=== PATIENT | male | born 1975 | race Asian ===

== ENCOUNTER 2024-08-05 00:44 | Emergency (ER) | payer OTHER, SELFPAY ==
[2024-08-05 00:50] VITALS: BP 127/87
[2024-08-05 01:11] LABS: % Basophils 0.8 % (0-2); % Immature Granulocytes 0.2 % (0-0.5); % Lymphocytes 25.3 % (20.5-51.1); % Monocytes 10.4 % (1.7-9.3); % Neutrophils 61.3 % (42.2-75.2); Absolute Eosinophils 0.1 10^3/uL (0-0.7); Absolute Lymphocytes 1.3 10^3/uL (1.2-3.4); Absolute Monocytes 0.5 10^3/uL (0.1-0.6); Absolute Neutrophils 3.1 10^3/uL (1.4-6.5); Hematocrit 42.3 % (39.0-52.0); Hemoglobin 13.4 g/dL (13.0-18.0); Mean Corp Hgb Conc. 31.7 g/dL (33.0-37.0); Mean Corpuscular Hgb 25.8 pg (27.0-31.0); Mean Corpuscular Volume 81.5 fL (80.0-94.0); Mean Platelet Volume 8.5 fL (7.4-10.4); Nucleated Red Blood Cells % 0 % (-); Platelet Count 416 10^3/uL (130-400); Red Blood Cell Count 5.19 10^6/uL (4.70-6.10); Red Cell Dist. Width 12.3 % (11.5-14.5)
[2024-08-05 01:26] LABS: ALT (SGPT) 23 U/L (0-50); AST (SGOT) 25 U/L (17-59); Albumin 4.9 g/dl (3.5-5.0); Alkaline Phosphatase 62 U/L (38-126); Blood Urea Nitrogen 11 mg/dl (9-20); Calcium 9.8 mg/dl (8.4-10.2); Carbon Dioxide 31 mmol/L (22-30); Chloride 100 mmol/L (98-107); Glucose 108 mg/dl (70-99); Potassium 4.5 mmol/L (3.5-5.1); Sodium 141 mmol/L (135-145); Total Bilirubin 0.8 mg/dl (0.2-1.3); Total Protein 7.4 g/dl (6.3-8.2); eGFR > 60.00
[2024-08-05 04:35] VITALS: BP 131/91
[2024-08-05] MEDS: GLYCERIN SUPPOSITORY ADULT 1 SUPP RECTAL (04:37)
--- NOTE | 2024-08-05 06:22 | ED.GENMED ---
History of Present Illness
General
Chief Complaint: Rectal Bleeding
Source: patient and family (son)
Exam Limitations: none
Time Seen by Provider: 08/05/24 06:03
Nursing documentation reviewed up to this point in time: agreed with
History of Present Illness
History of Present Illness:
49 yo male presents to the emergency department c/o constipation, blood w/BM's. He has a history of hemorrhoids. Does not take any blood thinners or other medications. Colonoscopy 3 years ago that showed a hemorrhoid. Pt showed a video of
himself defecating solid stool with blood dripping.
Past History
Past History
ED Past Medical History: None
ED Past Surgical History: None
Social History
Tobacco: Non-smoker
Alcohol: None
Drug: None
Living: with family
Employment: Employed
Review of Systems
Review of Systems
Allergies reviewed?: Yes
All Other Systems: Not applicable
Constitutional: Reports no symptoms
EENT: Reports no symptoms
Respiratory: Reports no symptoms
Cardiac: Reports no symptoms
ABD/GI: Reports constipated and bloody stools
: Reports no symptoms
Musculoskeletal: Reports no symptoms
Skin: Reports no symptoms
Neurological: Reports no symptoms
Endocrine: Reports no symptoms
Hematologic/Lymphatic: Reports no symptoms
Psychiatric: Reports no symptoms
Phy Exam
Physical Exam
Physical Exam:
Physical Exam
General: no apparent distress, not acutely ill
Neck: supple. no meningeal signs. normal posterior pharynx
Heart: s1/s2 regular rate and rhythm, no murmur. equal radial
pulses.
HEENT: Pupils equal round reactive to light, EOMI
Lungs: no acute respiratory distress. clear bilaterally
Abdomen: normal bowel sounds. not tender. no CVAT, scant blood on rectal exam
Neuro: alert and oriented. no focal neurological deficits cranial nerves II through XII intact
Skin: no rash
Psychiatric: well kept. interactive and cooperative
Extremities: no edema. no calf tenderness. negative homans. good distal pulses
Course
Orders/Labs/Results
Orders:
Orders
08/05/24 01:01
Type And Crossmatch [Type+Screen] Urgent
Complete Blood Count/With Diff Urgent
Comprehensive Metabolic Panel Urgent
08/05/24 01:12
ABO2 Routine
BBK Wristband Number:
Associate notified that ABO2 has been ordered: JEFF
Date: 08/05/24
Time: 01:13
Production Underwriter ID: [id number]
08/05/24 04:12
Glycerin [Glycerin Suppository Adult] 1 supp RECTAL NOW STA
08/05/24 06:22
Magnesium Citrate [Citroma] 300 ml PO ONCE ONE
Abnormal Lab Results
08/05/24
01:01
MCH 25.8 L pg
(27.0-31.0)
MCHC 31.7 L g/dL
(33.0-37.0)
Plt Count 416 H 10^3/uL
(130-400)
Monocytes % 10.4 H %
(1.7-9.3)
Carbon Dioxide 31 H mmol/L
(22-30)
Glucose 108 H mg/dl
(70-99)
08/05/24 01:01
08/05/24 01:01
Vital Signs
Initial and Last Documented VS:
Initial Vital Signs
Temp Pulse Resp BP Pulse Ox
98.5 F 76 16 127/87 99
08/05/24 00:50 08/05/24 00:50 08/05/24 00:50 08/05/24 00:50 08/05/24 00:50
Last Documented Vital Signs
Temp Pulse Resp BP Pulse Ox
98.5 F 70 16 131/91 100
08/05/24 00:50 08/05/24 04:35 08/05/24 00:50 08/05/24 04:35 08/05/24 04:35
MDM/Problems Addressed
Differential Diagnosis Includes:
GI bleed, hemorrhoids
MDM/Problems Addressed:
49 yo male with rectal bleeding. Solid stool Suspect due to internal hemorrhoid. Normal Hb. Will have pt f/u with GI.
*Pulse Oximetry
Patient hypoxic: no
*Critical Care Note
Total Time (30-74mins, 75-104mins- exclusive of procedures): Not Applicable
Data Reviewed
Review of Other/Old Records Reveals: Radiology Studies (ct a/p from 07/21/16 shows severe constipation, possible colonic stricture)
Source: records
Patient Management
Social determinants of health affecting care: Living situation and Strong social support
Escalation/DeEscalation of care consider admission/obs:
admit not indicated
ED Attending Note
-
Portions of this chart may have been created with voice recognition software.� Occasional wrong word or��sound alike� substitutions may have occurred due to the inherent limitations of voice recognition software.
Discharge Plan
Departure
Patient Disposition: Home (Routine Discharge)
Date of Disposition: 08/05/24
Time of Disposition: 06:29
Patient with high blood pressure during this ER visit?: Yes
Condition: Good
Discharge Problem:
Rectal bleeding
Instructions: Hemorrhoids (DC), Bloody Stools, Adult (DC), BLOOD PRESSURE
Prescriptions:
No Action
No Current Medications
0
Referrals:
Modesta Alvarez DO [Family Provider] - Call in 1-3 days for appt
Maren Malone DO [Active] - Call in 1-3 days for appt
Interventions
Interventions:
*Risk Screen - Suicide Last Done: 08/05/24 00:50
*General Assessment Last Done: 08/05/24 04:20
*Neglect/Abuse Screening Last Done: 08/05/24 00:50
ED- Fall Risk Assessment Last Done: 08/05/24 04:20
*ED COVID-19 Vaccine History Last Done: 08/05/24 00:50
MP-Tasekd-Hpjaceyuie Assessment Last Done: 08/05/24 04:20
ED- Cardiac Assessment Last Done: 08/05/24 04:20
ED- Pulmonary Assessment Last Done: 08/05/24 04:20
Discharge Date and Time
Print Language: MONTENEGRIN
[2024-08-05] MEDS: CITROMA 300 ML PO (07:10)
== END 2024-08-05 07:10 | disposition home or self-care (01) ==
LOC: EMR 00:44
PROVIDERS: Student in an Organized Health Care Education/Training Program; EMERGENCY PHYSICIAN Emergency Medicine; FAMILY PHYSICIAN Family Medicine
DX: K62.5 Hemorrhage of anus and rectum (principal); K59.00 Constipation, unspecified; Z87.19 Personal history of other diseases of the digestive system
CPT/HCPCS: 99283; 80053; 85025; 86850; 86900; 86901